=== PATIENT | female | born 1960 | race Caucasian/White ===

== ENCOUNTER 2017-06-21 11:10 | Inpatient (IN) | payer OTHER ==
[~2017-06-21] VITALS: Ht 160 cm; Wt 62.6 kg
--- NOTE | ~2017-06-21 | CATHLAB ---
[facility] [address] [place] [address] INVASIVE PROCEDURE REPORT Name: RYANDIONICIO Moore Room #: 212-P [facility]#: [id number] Admission: 06/21/17 Attend Phys: Desmond Balbuena Discharge: Date of : 62 Date of Service: 06/22/17 1121 Report #: [id number] THIS REPORT FOR: //name// APPROVED REPORT Study performed: 06/22/2017 09:07:09 Patient Details Patient Status: In-Patient Room #: The patient is a 56 year-old female Event Personnel Darryn Morris Cushion Spring Assembler, Tamara Victoria Monitor, Constance Gaines RTR, Mai Walker Wes dimensional engineer Performed Art Access - R femoral artery* Alli Access - R femoral vein [id number] Initial Mod Sed Same Phys/QHP Gr5y [id number] Mod Sed Same Phys/QHP Ea [id number] Right and Left Heart Cath w/or w/o Coronarie [id number] RLHC Hemostasis with Manual pressure Indication Arrhythmia, Dyspnea, Cardiomyopathy Procedure Narrative The patient was brought urgently to the Cardiac Catheterization Laboratory and was prepped and draped in a sterile manner. The Right Groin^ was infiltrated with 1% Lidocaine subcutaneous anesthesia. A PINNACLE 4FR Sheath #[id number] sheath was inserted into the . Coronary angiography was performed using coronary diagnostic catheters. The right coronary system was accessed and visualized with a JR 4 catheter. The left coronary system was accessed and visualized with a JL 4 catheter. The left ventricle was accessed and visualized with a PIGTAIL catheter. Left ventricular/Aortic Valve gradient assessed via catheter pullback. Left ventriculogram was performed in ALLEN projection. Hemostasis was obtained with manual pressure following sheath removal without any complications. The patient tolerated the procedure well and there were no complications associated with the procedure. There was no hematoma. Intraoperative Conscious Sedation Sedation start time: 09:25 Case end Time: 09:57 Fentanyl 50 mcg Versed 1.[address] [address] INVASIVE PROCEDURE REPORT Name: RYAN,DIONICIO S Room #: 212-P [facility]#: [id number] Admission: 06/21/17 Attend Phys: Desmond Balbuena Discharge: Date of : 62 Date of Service: 06/22/17 1121 Report #: [id number] Fluoro Time: 3.40 minutes Dose: DAP 1965.00 cGycm2 234 mGy Contrast Type and Amount: Omnipaque 95 ml Coronary Angiography The patient's coronary anatomy is right dominant. Diagnostic Cath Left Main Large-caliber vessel, anterior graphically normal. LAD Moderate size caliber vessel, traveling down the anterior wall and wrapping around the apex. Appears angiographically normal. There is a incidental finding of a fistula originating from a distal septal maintenance electrician into the left ventricle. Diagonal 1 Small-caliber vessel, with no flow-limiting lesions. Circumflex Moderate size caliber vessel, appears angiographically normal. OM1 Moderate size caliber vessel, with no flow-limiting lesions. OM2 Small-caliber vessel, with no flow-limiting lesions. Right Coronary Right dominant system, with no flow-limiting lesions. R PDA Moderate size caliber vessel, with no flow-limiting lesions. RPLV Moderate size caliber vessel, with no flow-limiting lesions. Left Ventriculography The left ventricle is mild to moderately dilated in size with decreased contractility. The left ventricular ejection fraction is estimated to be 20%. Hemodynamics The right atrial mean pressure is 10 mmHg. The right ventricular pressure is 31/1 mmHg. The pulmonary artery pressure is 30/14 mmHg with a mean of 19 mmHg. The mean pulmonary capillary wedge pressure is 12 mmHg. The aortic pressure is 115/80 mmHg with a mean of 94 mmHg. The left ventricular pressure is 118/11 mmHg with a mean of mmHg. The left ventricular end diastolic pressure is 16 mmHg. PaO2 saturation is 73.40 %. Arterial saturation is 99.00 %. The cardiac output using the Bonita method is 2.97 L/min. The cardiac index using the Bonita method is 1.82 L/min/m2. Conclusion 1. Angiographically normal coronary arteries. [address] [address] INVASIVE PROCEDURE REPORT Name: DIONICIO RYAN Room #: 212-P [facility] M.R.#: [id number] Admission: 06/21/17 Attend Phys: Desmond Balbuena Discharge: Date of : 62 Date of Service: 06/22/17 1121 Report #: [id number] 2. Severe, nonischemic cardiomyopathy. 3. Right-sided heart pressures measured. 4. Incidental finding of a coronarycameral fistula. 5. Recommend medical therapy. <ELECTRONICALLY SIGNED> By: Darryn Morris MD 06/22/171120 20 20 Darryn Morris MD /INF
--- NOTE | ~2017-06-21 | 2DMMODE ---
[facility] [place] [address] 2 D/M-MODE ECHOCARDIOGRAM Name: DIONICIO RYAN Room #: REG [facility]#: [id number] Admission: 06/21/17 Attend Phys: Desmond Balbuena Discharge: Date of : 62 Date of Service: 06/21/17 1258 Report #: [id number] THIS REPORT FOR: //name// APPROVED REPORT Study performed: 06/21/2017 11:22:52 EXAM: Comprehensive 2D, Doppler, and color-flow Echocardiogram Patient Location: Out-Patient Status: routine BSA: 1.66 HR: 63 bpm BP: 118/70 mmHg Rhythm: NSR arrhythmia Other Information Study Quality: Excellent Indications Palpitations. 2D Dimensions RVDd: 53.80 mm LVEF(%): 29.66 (>50%) IVSd: 10.24 (7-11mm) LVOT Diam: 19.99 (18-24mm) LVDd: 72.07 mm PWd: 9.18 (7-11mm) Ascending Ao: 31.76 (22-36mm) LVDs: 61.70 (25-40mm) Aortic Root: 27.91 mm Pham's LVEF: 29.66 % Volumes Left Atrial Volume (Systole) Single Plane 4CH: 52.79 mL Single Plane 2CH: 73.72 mL LA ESV Index: 42.00 mL/m2 Aortic Valve AoV Peak Rikki.: 1.12 m/s AO Peak Gr.: 5.03 mmHg LVOT Max P.00 mmHg LVOT Max V: 0.50 m/s COLEEN Vmax: 1.40 cm2 Mitral Valve E/A Ratio: 0.7 MV Decel. Time: 140.21 ms [facility] [place] [address] 2 D/M-MODE ECHOCARDIOGRAM Name: DIONICIO RYAN Room #: [facility]#: [id number] Admission: 06/21/17 Attend Phys: Desmond Balbuena Discharge: Date of : 62 Date of Service: 06/21/17 1258 Report #: [id number] MV E Max Rikki.: 0.49 m/s MV A Rikki.: 0.66 m/s MV PHT: 40.66 ms IVRT: 129.18 ms Pulmonary Valve PV Peak Rikki.: 0.86 m/s PV Peak Gr.: 2.97 mmHg Pulmonary Vein P Vein S: 0.36 m/s P Vein A: 0.21 m/s P Vein D: 0.45 m/s P Vein A Dur.: 106.1 msec P Vein S/D Ratio: 0.80 Tricuspid Valve TR Peak Rikki.: 2.31 m/s RAP Estimate: 5.00 mmHg TR Peak Gr.: 21.33 mmHg PA Pressure: 26.00 mmHg Left Ventricle Left ventricle is dilated. severe global hypokinesis with the anteroseptal wall more hypokinetic There is normal left ventricular wall thickness. Left ventricular systolic function is severely decreased. LVEF is 20-25%. Mild diastolic dysfunction is present (impaired relaxation pattern). Right Ventricle Right ventricle is dilated. Right ventricle is hypokinetic. Atria Left atrium is dilated. Right atrium is dilated. Aortic Valve The aortic valve is normal in structure. No aortic regurgitation is present. There is no aortic valvular stenosis. Mitral Valve The mitral valve is normal in structure. Mild mitral regurgitation. No evidence of mitral valve stenosis. Tricuspid Valve The tricuspid valve is normal in structure. Mild tricuspid regurgitation. Estimated PAP is 25-30mmHg. Pulmonic Valve The pulmonary valve is normal in structure. Mild pulmonic [facility] [address] [place] [address] 2 D/M-MODE ECHOCARDIOGRAM Name: DIONICIO RYAN Room #: REG [facility]#: [id number] Admission: 06/21/17 Attend Phys: Desmond Balbuena Discharge: Date of : 62 Date of Service: 06/21/17 1258 Report #: [id number] regurgitation. Great Vessels The aortic root is normal in size. The ascending aorta is normal in size. IVC is normal in size and collapses >50% with inspiration. Pericardium There is no pericardial effusion. <Conclusion> severe global hypokinesis with the anteroseptal wall more hypokinetic LVEF is 20-25%. Right ventricle is dilated. Left atrium is dilated. Right atrium is dilated. The aortic valve is normal in structure. The mitral valve is normal in structure. Mild mitral regurgitation. The tricuspid valve is normal in structure. Mild tricuspid regurgitation. Estimated PAP is 25-30mmHg. The pulmonary valve is normal in structure. Mild pulmonic regurgitation. There is no pericardial effusion. <ELECTRONICALLY SIGNED> By: Chris Barclay MD 06/21/17 1258 1258 1258 Chris Barclay MD /INF
--- NOTE | ~2017-06-21 | D ---
[facility] [place] [address] DISCHARGE SUMMARY Name: DIONICIO RYAN Room #: 212-P [facility] IN ..#: [id number] Admission: 06/21/17 Attend Phys: Desmond Balbuena MD Discharge: 06/23/17 Date of : 62 Report #: [id number] THIS REPORT FOR: //name// CC: Desmnod Balbuena [facility] DATE OF SERVICE: 06/23/2017 DISCHARGE DIAGNOSES: 1. Nonischemic cardiomyopathy. 2. Nonsustained ventricular tachycardia. 3. Acute systolic heart failure. 4. Hypertension. HISTORY: The patient is a 56-year-old who was sent to me as an outpatient for irregular heartbeat noted on physical exam. To further evaluate this, I had the patient wear a media monitor and when she came in for followup after wearing the monitor, I had her undergo an echocardiogram that morning. She was noted to have a severely decreased EF of 20-25% with biventricular enlargement. Her media monitor also revealed that she had frequent episodes of nonsustained VT with rates close to 200 beats a minute and the longest lasting 19 beats at around 10 seconds. Speaking with her, she has had some shortness of breath and her believes that she underestimates this as he believes she is always fatigued and has exertional dyspnea with mild activities and easily gets short of breath when she climbs stairs. As such, I have recommended emergent admission given her potentially life-threatening cardiac arrhythmias and severe cardiomyopathy. HOSPITAL COURSE: The patient was placed in the hospital and obtained baseline laboratories. Her thyroid function was within normal limits. Her ferritin level was normal as well. She had essentially normal chemistry and CBC. She did have an elevated proBNP and a slightly elevated troponin, likely due to her cardiomyopathy. The following day, she underwent diagnostic cardiac catheterization, which showed angiographically normal coronary arteries. Her left ventricular end-diastolic pressure was 16. Her PaO2 saturation was 73.4%, arterial sat was 99%. Her cardiac output using the Bonita method was 2.97 liters per minute and her cardiac index was 1.8 liters per minute per meter squared. There was also an incidental finding of a coronary cameral fistula. As such, the patient was monitored overnight and continued to optimize her medications. I stopped diuretics as it appears that she had diuresed well. On the day of discharge, she was doing better. She denied any chest pain, shortness of breath was improved. She had no PND, orthopnea. On physical exam, her heart was regular rate and rhythm. Lungs clear to auscultation bilaterally. She had no lower extremity edema. She had been approved for her LifeVest and I instructed the importance of wearing this daily. [address] [address] DISCHARGE SUMMARY Name: DIONICIO RYAN Room #: 212-P [facility] IN M.R.#: [id number] Admission: 06/21/17 Attend Phys: Desmond Balbuena MD Discharge: 06/23/17 Date of : 62 Report #: [id number] DISCHARGE MEDICATIONS: Include carvedilol 3.125 b.i.d., losartan 25 mg once a day, aspirin 81 mg once a day, amiodarone 400 mg once a day. We discussed that we will have to monitor liver, thyroid function test, which she understands. We will see her back in clinic in approximately 2 weeks. I discussed that eventually I would like her to undergo cardiac MRI to evaluate the etiology of her cardiomyopathy. We could also consider genetic testing for her cardiomyopathy as well. Thank you for allowing me to participate in her care. By: 1050 1133 Desmond Balbuena MD /nt
--- NOTE | ~2017-06-21 | EKG ---
[place] [address] [address] [facility] [email or web address] [address] ELECTROCARDIOGRAM REPORT Name: RYAN,DIONICIO Teresa Room #: 212-P ADM IN M.R.#: [id number] Admission: 06/21/17 Attend Phys: Desmond Balbuena MD Discharge: Date of : 62 Report #: [id number] THIS REPORT FOR: //name// [facility] Test Date: 2017-06-21 Test Time: 19:17:39 Pat Name: DIONICIO RYAN Department: Room: 212 P Gender: F Aircraft Captain: Huseyin PARDO : 1960 Requested By: Desmond Balbuena Order Number: [id number] MD: Danie Israel Measurements Intervals [place] Rate: 73 P: 54 MT: 199 QRS: -73 QRSD: 182 T: 100 QT: 439 QTc: 484 Interpretive Statements Sinus rhythm Multiform ventricular premature complexes Probable left atrial enlargement Right bundle branch block LVH with secondary repol abnrm No previous ECG available for comparison Electronically Signed On 06-22-2017 7:32:57 CDT by Danie Israel [email or web address] <ELECTRONICALLY SIGNED> By: Danie Israel MD, [facility] 06/22/17 0732 191 16 Danie Israel MD, [facility] /EPI
--- NOTE | ~2017-06-21 | H ---
[facility] [place] [address] HISTORY AND PHYSICAL Name: DIONICIO RYAN Room #: 212-P ADM IN M.R.#: [id number] Admission: 06/21/17 Attend Phys: Desmond Balbuena MD Discharge: Date of : 62 Report #: [id number] THIS REPORT FOR: //name// CC: Desmond Whittington REASON FOR ADMISSION: 1. Acute congestive heart failure. 2. Nonsustained VT. 3. Newly diagnosed cardiomyopathy. HISTORY: The patient is a 56-year-old who I recently saw in consultation as an outpatient for some palpitations. Apparently, she was at her LEASING ASSISTANT who noted some skipped heartbeats. The LEASING ASSISTANT discussed with Dr. Whittington these findings and Dr. Whittington recommended that the patient see me. The patient reports that occasionally she notices some skipped heartbeats, but denied any other cardiovascular complaints. She denied any problems with chest pain or chest tightness. At that time, I recommended that she wear a manager cardiac and follow up in about a month and at that time, we would perform an echocardiogram. Today, she came in for evaluation and she underwent an echocardiogram, which I reviewed, which surprisingly demonstrates her EF to be 20-25% with enlargement of the left ventricle and right ventricle. I reviewed her manager cardiac, which did show several runs of nonsustained VT, the longest of which was 19 beats lasting 8.4 seconds with average heart rate of 153 beats per minute. There were approximately 20 episodes of nonsustained VT noted. Her EKG shows normal sinus rhythm with a right bundle branch block morphology, QRS duration 184 milliseconds, possible epsilon waves noted in V3, V4, but again this may be related to the usual right bundle branch block morphology. There are no ischemic changes. REVIEW OF SYSTEMS: GENERAL: She denies fevers or chills. HEENT: No sore throat. CARDIOVASCULAR: As above. PULMONARY: No productive cough. She reports that she does have exertional dyspnea, which her agrees with. He thinks that she is always short of breath and thinks it is unusual how tired she always is. She thinks that she minimizes her shortness of breath and she notices that when she climbs a flight of stairs, she is very short of breath. GASTROINTESTINAL: No nausea or vomiting. GENITOURINARY: No dysuria. MUSCULOSKELETAL: No myalgias or arthralgias. ENDOCRINE: No heat or cold intolerance. NEUROLOGIC: No focal weakness. HOME MEDICATIONS: Include citalopram, fluticasone, hydrochlorothiazide and norgestrel with ethinyl estradiol. [address] [address] HISTORY AND PHYSICAL Name: DIONICIO RYAN Room #: 212-P [facility] IN M.R.#: [id number] Admission: 06/21/17 Attend Phys: Desmond Balbuena MD Discharge: Date of : 62 Report #: [id number] ALLERGIES: She has no known drug allergies. PAST MEDICAL HISTORY: Hypertension, hyperlipidemia, squamous cell carcinoma, cough due to AVA inhibitor, arrhythmias and anxiety. FAMILY HISTORY: Includes a father who had aneurysm, but no history of cardiomyopathy or sudden cardiac . SOCIAL HISTORY: The patient smoked briefly in the 80s and rarely drinks alcohol. She does use a lot of caffeine. She is and here with her and has a child who is in college. PHYSICAL EXAMINATION: VITAL SIGNS: Today, pulse 69, blood pressure systolic was 110/60. GENERAL: She is in no acute distress. HEENT: Oropharynx is clear. NECK: Supple, with no thyromegaly. HEART: Regular rate and rhythm. She does have positive JVD. LUNGS: Clear to auscultation bilaterally. ABDOMEN: Soft, nontender, nondistended. EXTREMITIES: No clubbing, cyanosis, edema. NEUROLOGIC: Cranial nerves 2-12 are grossly intact. Chest x-ray is pending. LABORATORY DATA: White count is 8.8, hemoglobin 15, platelets are 255. Coags: INR is 1.0. Her sodium is 143, potassium 3.7, BUN 18, creatinine 1.0, glucose 103, ferritin is 41. Her total bilirubin is 1.4, ALT 16, alkaline phosphatase 72. Troponin is 0.11. Her proBNP is 2687. Her TSH is 0.7, her free T4 is 0.9. Her EKG is as described above. ASSESSMENT: 1. Acute new onset congestive heart failure. 2. Left ventricular systolic failure. 3. Right ventricular systolic failure. 4. Elevated troponin, likely due to congestive heart failure. 5. History of hypertension. 6. History of hyperlipidemia. 7. Nonsustained ventricular tachycardia. 8. High risk for sudden cardiac given cardiomyopathy and ventricular tachycardia. In summary, the patient is a 56-year-old with newly diagnosed cardiomyopathy. It is unclear if this is ischemic or nonischemic in nature. What is most concerning is the ventricular arrhythmias noted on her manager cardiac. I have [facility] [address] [place] [address] HISTORY AND PHYSICAL Name: DIONICIO RYAN Room #: 212-P ADM IN [facility].#: [id number] Admission: 06/21/17 Attend Phys: Desmond Balbuena MD Discharge: Date of : 62 Report #: [id number] recommended emergent admission to evaluate the etiology of her cardiomyopathy. I also want to ensure that she is safe from any ventricular arrhythmias and monitored in the hospital. We will take this admission to initiate standard cardiovascular medications including beta asael and ARB. Apparently, she has had intolerances to lisinopril in the past with a cough, which she was on for hypertension. I have recommended that she undergo diagnostic right and left heart catheterization tomorrow to rule out any significant coronary artery disease. It would seem unlikely that she would have significant risk factors for coronary artery disease given her age. If this is normal, we will continue to optimize her meds in the hospital and diurese the patient while she is here. Also, prior to discharge, she will need to have a LifeVest placed to be protected from any future ventricular arrhythmias. By: 1658 [id number] Desmond Balbuena MD /nt
[2017-06-21] MEDS ORDERED: HYDROCHLOROTH12.5 M1 PO (15:01)
[2017-06-21] MEDS ORDERED: CELEXA20 MG PO (15:01)
[2017-06-21] MEDS ORDERED: FLONASE 0.05%50 MCG NASAL (15:02)
[2017-06-21] MEDS ORDERED: ESTRADIOL 1 MG T1 M1 PO (15:03)
[2017-06-21] MEDS ORDERED: FEMHRT 0.5 MG-1 EACH PO (15:03)
[2017-06-21] MEDS ORDERED: AYGESTIN 5 MG TA5 M1 PO ×2 (15:06→15:07)
[2017-06-21] MEDS ORDERED: GYNODIOL0.5 MG PO (15:08)
[2017-06-21 15:22] LABS: HEMATOCRIT 44.8 % (37.0-47.0); MCH 30.2 pg (26.0-34.0); MCHC 33.4 g/dL (28.0-37.0); MCV 90.4 fL (80.0-100.0); RBC 4.96 mil/uL (4.20-5.00); RDW 13.6 % (10.5-14.5); WBC 8.8 thou/uL (4.0-11.0)
[2017-06-21 15:38] LABS: PROTIME 10.3 Seconds (9.3-11.4)
[2017-06-21 15:43] LABS: ALBUMIN 4.3 g/dL (3.4-5.0); CALCIUM 9.7 mg/dL (8.5-10.1); POTASSIUM 3.7 mmol/L (3.5-5.1); TOTAL BILIRUBIN 1.4 mg/dL (<0.1-1.0); TOTAL PROTEIN 7.5 g/dL (6.4-8.2); TROPONIN-I 0.11 ng/mL (<0.06)
[2017-06-21 15:51] LABS: TSH 0.71 uIU/mL (0.358-3.740)
[2017-06-21 19:50] VITALS: BP 122/67
[2017-06-22 00:29] VITALS: BP 100/58
[2017-06-22 04:18] VITALS: BP 99/73
[2017-06-22 07:40] VITALS: BP 106/52
[2017-06-22 09:37] LABS: BE(vivo) -0.5 mmol/L (-2 to +3); HCO3 25.3 mmol/L (22.0-26.0); PCO2 45.2 mmHg (35.0-45.0); pH 7.365 (7.360-7.450); sO2 73.4 % (92.0-98.0)
[2017-06-22 09:38] LABS: PO2 40.3 mmHg (80.0-100.0)
[2017-06-22 09:44] LABS: BE(vivo) -0.7 mmol/L (-2 to +3); HCO3 24.5 mmol/L (22.0-26.0); PCO2 42.1 mmHg (35.0-45.0); PO2 205.4 mmHg (80.0-100.0); pH 7.382 (7.360-7.450); sO2 99.4 % (92.0-98.0)
[2017-06-22 15:50] VITALS: BP 94/54
[2017-06-23 00:01] VITALS: BP 95/59
[2017-06-23 03:41] VITALS: BP 100/62
[2017-06-23 04:28] LABS: ABSOLUTE NEUTROPHILS 3.7 thou/uL (1.4-8.2); BASOPHILS 0.7 % (0.0-2.0); EOSINOPHILS 2.1 % (0.0-3.0); HEMATOCRIT 40.4 % (37.0-47.0); HEMOGLOBIN 13.5 gm/dL (12.0-15.0); MCH 30.3 pg (26.0-34.0); MCHC 33.3 g/dL (28.0-37.0); MONOCYTES 7.1 % (1.0-8.0); PLATELET COUNT 228 thou/uL (150-400); POLYS 55.1 % (36.0-66.0); RBC 4.44 mil/uL (4.20-5.00); RDW 13.4 % (10.5-14.5); WBC 6.6 thou/uL (4.0-11.0)
[2017-06-23 04:42] LABS: CALCIUM 9.2 mg/dL (8.5-10.1); CREATININE 0.8 mg/dL (0.6-1.0); POTASSIUM 3.9 mmol/L (3.5-5.1)
[2017-06-23 07:15] VITALS: BP 96/56
[2017-06-23] MEDS ORDERED: CARVEDILOL3.125 MG PO (09:06)
[2017-06-23] MEDS ORDERED: PACERONE 200 M200 M1 PO (09:06)
[2017-06-23] MEDS ORDERED: COZAAR 25 MG TA25 M1 PO (09:06)
[2017-06-23] MEDS ORDERED: ASPIR 8181 MG PO (09:07)
[2017-06-23 09:46] VITALS: BP 96/56
== END 2017-06-23 10:36 | disposition home or self-care (01) | DRG 287 ==
LOC: CV → 2N 14:21 → CV 14:29 → 2N 06-23 10:36
PROVIDERS: Internal Medicine Cardiovascular Disease; Nurse Practitioner Gerontology
PROC: B2151ZZ Fluoroscopy of Left Heart using Low Osmolar Contrast (ICD-10-PCS; principal; 2017-06-22)
PROC: B2111ZZ Fluoroscopy of Multiple Coronary Arteries using Low Osmolar Contrast (ICD-10-PCS; principal; 2017-06-22)
PROC: 4A023N7 Measurement of Cardiac Sampling and Pressure, Left Heart, Percutaneous Approach (ICD-10-PCS; principal; 2017-06-22)
DX: I11.0 Hypertensive heart disease with heart failure (principal); I47.2 Ventricular tachycardia; I50.21 Acute systolic (congestive) heart failure; E78.5 Hyperlipidemia, unspecified
CPT/HCPCS: 10797

== ENCOUNTER 2017-07-11 10:02 | Inpatient (IN) | payer OTHER ==
[~2017-07-11] VITALS: Ht 143.3 cm; Wt 55.3 kg
--- NOTE | ~2017-07-11 | P ---
[facility] [address] [address] PROCEDURE REPORT Name: CONNORDIONICIO Moore Room #: 205-P [facility] IN ..#: [id number] Admission: 07/11/17 Attend Phys: Adrianna Henriquez Discharge: 07/12/17 Date of : 62 Report #: [id number] THIS REPORT FOR: //name// CC: Adrianna Islas [facility] DATE OF SERVICE: 07/11/2017 PROCEDURE PERFORMED: Biventricular ICD implantation. HISTORY OF PRESENT ILLNESS: The patient is a 56-year-old recently diagnosed with a nonischemic cardiomyopathy and nonsustained VT. She was recently admitted, underwent diagnostic cardiac catheterization and started on standard heart failure medication regimen. She was also started on amiodarone for her malignant ventricular arrhythmias. She had a LifeVest placed. On the day of the procedure, she called in complaining of a syncopal episode. We interrogated her LifeVest remotely and there was evidence of complete heart block. We asked her to come to the emergency room and she was noted to be in complete heart block in the ER. As such, she was taken emergently today for device implantation. Given that she has complete heart block and a decreased EF and I anticipate 100% RV pacing, I recommend biventricular pacing with a RV and LV lead. Given that she has a severely decreased EF and unlikely to recover much cardiac function, I recommended placing a biventricular ICD today to prevent a repeat surgical procedure in the near future. ANESTHESIA: The patient underwent MAC anesthesia with no anesthesia related complications. PROCEDURE: The patient underwent informed consent where we discussed the details of the procedure including the risks, which include, but not limited to bleeding, infection, vascular damage, cardiac perforation and pneumothorax. She understood these risks and is willing to proceed. As such, she was brought to the EP laboratory in a fasting and sedated state and prepped and draped in a sterile fashion. Next, a venogram was performed and IV antibiotics were administered. I injected lidocaine below the level of left clavicle. Incision was made. A pocket was created over the prepectoral fascia and access was obtained 3 times in the left axillary vein using the extrathoracic approach with sheath positioned using the modified Seldinger technique. Next, I positioned a dual coil RV lead into the right ventricular apex with adequate pacing and sensing thresholds and an atrial lead was positioned in the right atrial appendage with adequate pacing and sensing thresholds. Both leads were sutured to the prepectoral fascia. Next, a guide sheath was placed into the right atrium and access was easily obtained to the coronary sinus. There was evidence of a nice posterolateral branch and I was able to position a quadripolar lead deep into this vessel. There was good pacing and sensing thresholds on this lead. The sheath was split and the lead remained stable. The LV lead was [facility] [address] [place] [address] PROCEDURE REPORT Name: DIONICIO RYAN Room #: 205-P [facility] IN M.R.#: [id number] Admission: 07/11/17 Attend Phys: Adrianna Henriquez Discharge: 07/12/17 Date of : 62 Report #: [id number] sutured to the prepectoral fascia. The leads were connected to the ICD and the pocket was irrigated with vancomycin solution. The pocket was closed in 3 layers using 2-0 for the deep layer, 3-0 for the mid layer, and 4-0 for the subcuticular layer. Surgical glue was placed to the outer skin layer. The patient awoke neurologically and hemodynamically intact. No complications and no significant bleeding. While implanting the device, she had regained conduction, but towards the end, she was demonstrating that she required 100% ventricular pacing. The implanted device was a [employer] model #[id number], serial #[id number]. The atrial lead was [employer] model #2088TC, 52 cm, serial #[id number] with a P-wave of 1.8 millivolts, pacing impedance of 490 ohms and a pacing threshold of 0.75 volts at 0.5 milliseconds. The RV lead was a [employer] model #7120Q, 65 cm, serial #[id number]. This lead demonstrated a R-wave of 11.8 millivolts, a pacing impedance of 650 ohms and a pacing threshold of 0.5 volts at 0.5 milliseconds. The LV lead was a [employer] model #1458QL, 86 cm, serial #[id number]. This lead demonstrated a pacing impedance of 710 ohms and a pacing threshold of 1.75 volts at 0.5 milliseconds. The device was programmed to the DDD 60-130 mode. The VT zone was set from 180-220 beats per minute with ATP while charging followed by max output shocks. The VF zone was set at greater than 220 beats per minute with ATP while charging followed by max output shocks. CONCLUSIONS: 1. Successful biventricular ICD implantation. 2. Satisfactory atrial, right ventricular and left ventricular pacing and sensing thresholds. <ELECTRONICALLY SIGNED> By: Desmond Balbuena MD 08/10/17 0827 1052 1740 Desmond Balbuena MD /nt
--- NOTE | ~2017-07-11 | EKG ---
[place] [address] [facility] [place] [address] ELECTROCARDIOGRAM REPORT Name: RYAN,DIONICIO Teresa Room #: 205-P ADM IN M.R.#: [id number] Admission: 07/11/17 Attend Phys: Adrianna Henriquez Discharge: Date of : 62 Report #: [id number] THIS REPORT FOR: //name// [facility] ED Test Date: 2017-07-11 Test Time: 10:05:40 Pat Name: DIONICIO RYAN Department: Room: 205 Gender: F [employer]: JANELL : 1960 Requested By: Vaishali Billy Order Number: [id number] MD: Danie Israel Measurements Intervals [place] Rate: 30 P: 0 LA: QRS: -71 QRSD: 174 T: -78 QT: 632 QTc: 447 Interpretive Statements Sinus rhythm with Complete heart block Right bundle branch block Inferior myocardial infarction of indeterminate age T-wave abnormality, consider ischemia Compared to ECG 06/21/2017 19:17:39 AV block, complete (third-degree) now present Electronically Signed On 07-11-2017 16:41:12 CDT by Danie Israel [email or web address] <ELECTRONICALLY SIGNED> By: Danie Israel MD, [facility] 07/11/17 1641 1005 1005 Danie Israel MD, [facility] /EPI
[~2017-07-11 10:02] MED LIST: ASPIR 8181 MG PO; AYGESTIN 5 MG TA5 M1 PO; CARVEDILOL3.125 MG PO; CELEXA20 MG PO; COZAAR 25 MG TA25 M1 PO; ESTRADIOL 1 MG T1 M1 PO; FEMHRT 0.5 MG-1 EACH PO; FLONASE 0.05%50 MCG NASAL; GYNODIOL0.5 MG PO; HYDROCHLOROTH12.5 M1 PO; PACERONE 200 M200 M1 PO
[2017-07-11 10:06] VITALS: BP 110/33
[2017-07-11 10:35] LABS: ABSOLUTE NEUTROPHILS 4.9 thou/uL (1.4-8.2); BASOPHILS 1.1 % (0.0-2.0); EOSINOPHILS 2.1 % (0.0-3.0); LYMPHOCYTES 20.6 % (24.0-44.0); MCHC 34.1 g/dL (28.0-37.0); MCV 90.9 fL (80.0-100.0); MONOCYTES 5.4 % (1.0-8.0); PLATELET COUNT 285 thou/uL (150-400); POLYS 70.8 % (36.0-66.0); RBC 4.84 mil/uL (4.20-5.00); RDW 13.5 % (10.5-14.5); WBC 6.9 thou/uL (4.0-11.0)
[2017-07-11 10:38] LABS: CALCIUM 9.4 mg/dL (8.5-10.1); CREATININE 1.3 mg/dL (0.6-1.0); POTASSIUM 4.2 mmol/L (3.5-5.1)
[2017-07-11 10:39] LABS: MAGNESIUM 2.1 mg/dL (1.8-2.4)
[2017-07-11 10:48] LABS: APTT 24.6 Seconds (24.5-32.8); PROTIME 10.3 Seconds (9.3-11.4)
[2017-07-11 11:23] VITALS: BP 105/45
[2017-07-11 11:49] LABS: CHOLESTEROL 199 mg/dL (<200); HDL CHOLESTEROL 51 mg/dL (>40); LDL CHOLESTEROL 137 mg/dL (<100); TC:HDL 3.9 Ratio (Not establshd); TRIGLYCERIDE 59 mg/dL (<150); VLDL 12 mg/dL (<40)
[2017-07-11 17:26] VITALS: BP 120/75
[2017-07-11 20:33] VITALS: BP 106/57
[2017-07-11 22:53] VITALS: BP 105/62
[2017-07-12 02:06] LABS: LYME ANTIBODY SCREEN* <0.91 ISR (0.00-0.90)
[2017-07-12 05:09] VITALS: BP 98/49
[2017-07-12] MEDS ORDERED: HYDROCODON-ACE1 EAC7 PO (08:03)
[2017-07-12 11:16] VITALS: BP 98/49
== END 2017-07-12 11:54 | disposition home or self-care (01) | DRG 227 ==
LOC: ER 10:02 → 2N 11:16 → EROBS 11:16 → 2N 11:35 → ICU 13:22 → 2N 14:02 → ENTRNSPT 07-12 11:37 → EDTRNSPTSTS 07-12 11:44 → 2N 07-12 11:54
PROVIDERS: Emergency Medicine; Hospitalist
PROC: 02H63KZ Insertion of Defibrillator Lead into Right Atrium, Percutaneous Approach (ICD-10-PCS; principal; 2017-07-11)
PROC: 02HK3KZ Insertion of Defibrillator Lead into Right Ventricle, Percutaneous Approach (ICD-10-PCS; principal; 2017-07-11)
PROC: 02HL3KZ Insertion of Defibrillator Lead into Left Ventricle, Percutaneous Approach (ICD-10-PCS; principal; 2017-07-11)
PROC: 0JH609Z Insertion of Cardiac Resynchronization Defibrillator Pulse Generator into Chest Subcutaneous Tissue and Fascia, Open Approach (ICD-10-PCS; principal; 2017-07-11)
DX: I44.2 Atrioventricular block, complete (principal); I42.0 Dilated cardiomyopathy; I10 Essential (primary) hypertension; Z79.899 Other long term (current) drug therapy; Z79.82 Long term (current) use of aspirin; Z87.891 Personal history of nicotine dependence

== ENCOUNTER → 2017-10-12 | Outpatient (CLI) | payer OTHER ==
[~2017-10-12] MED LIST changes: +HYDROCODON-ACE1 EAC7 PO
--- NOTE | ~2017-10-12 | 2DMMODE ---
[facility] [address] [place] [address] 2 D/M-MODE ECHOCARDIOGRAM Name: DIONICIO RYAN Room #: [facility]#: [id number] Admission: 10/12/17 Attend Phys: Desmond Balbuena Discharge: Date of : 62 Date of Service: 10/12/17 1446 Report #: [id number] THIS REPORT FOR: //name// APPROVED REPORT Study performed: 10/12/2017 13:11:05 EXAM: Comprehensive 2D, Doppler, and color-flow Echocardiogram Patient Location: Out-Patient Room #: Echo lab 2 Status: routine BSA: 1.66 HR: 61 bpm BP: 114/76 mmHg Other Information Study Quality: Good Indications ICD: Hypertension/HDD 2D Dimensions RVDd: 44.32 mm LVEF(%): 25.20 (>50%) IVSd: 9.05 (7-11mm) LVOT Diam: 20.07 (18-24mm) LVDd: 71.06 mm PWd: 10.22 (7-11mm) LVDs: 62.51 (25-40mm) Aortic Root: 24.99 mm IVC: 15.00 mm Pham's LVEF: 25.20 % Volumes Left Atrial Volume (Systole) Single Plane 4CH: 97.67 mL Single Plane 2CH: 72.95 mL LA ESV Index: 54.00 mL/m2 Aortic Valve AoV Peak Rikki.: 1.21 m/s AO Peak Gr.: 5.81 mmHg LVOT Max P.23 mmHg LVOT Max V: 0.55 m/s COLEEN Vmax: 1.45 cm2 Mitral Valve E/A Ratio: 1.4 MV Decel. Time: 194.07 ms [facility] [address] [place] [address] 2 D/M-MODE ECHOCARDIOGRAM Name: DIONICIO RYAN Room #: [facility]#: [id number] Admission: 10/12/17 Attend Phys: Desmond Balbuena Discharge: Date of : 62 Date of Service: 10/12/17 1446 Report #: [id number] E Max Rikki.: 0.70 m/s MV A Rikki.: 0.49 m/s MV PHT: 56.28 ms IVRT: 83.04 ms Pulmonary Valve PV Peak Rikki.: 0.69 m/s PV Peak Gr.: 1.92 mmHg Pulmonary Vein P Vein S: 0.54 m/s P Vein A: 0.32 m/s P Vein D: 0.40 m/s P Vein S/D Ratio: 1.35 Tricuspid Valve TR Peak Rikki.: 2.30 m/s TR Peak Gr.: 21.24 mmHg PA Pressure: 26.00 mmHg Left Ventricle Left ventricle is dilated. There is severe global hypokinesis of the left ventricle. There is normal left ventricular wall thickness. Left ventricular ejection fraction is severely decreased. LVEF is 20-25%. Grade III - reversible restrictive diastolic dysfunction. Right Ventricle Right ventricle is dilated. Right ventricle is mildly hypokinetic. Device lead is present in the right ventricle. Atria Left atrium is dilated. Right atrium is dilated. Device lead is present in the right atrium. Aortic Valve The aortic valve is normal in structure. No aortic regurgitation is present. There is no aortic valvular stenosis. Mitral Valve The mitral valve is normal in structure. Mild to moderate mitral regurgitation. No evidence of mitral valve stenosis. Tricuspid Valve The tricuspid valve is normal in structure. There is mild tricuspid regurgitation. Estimated PAP 26 mmHg. There is no pulmonary hypertension. Pulmonic Valve [address] [address] 2 D/M-MODE ECHOCARDIOGRAM Name: DIONICIO RYAN Room #: [facility] [place]#: [id number] Admission: 10/12/17 Attend Phys: [facility]mond [facility] Discharge: Date of : 62 Date of Service: 10/12/17 1446 Report #: [id number] The pulmonary valve is normal in structure. Trace to mild pulmonic regurgitation. Great Vessels The aortic root is normal in size. IVC is normal in size and collapses >50% with inspiration. Pericardium There is no pericardial effusion. <Conclusion> Left ventricle is dilated. Left ventricular ejection fraction is severely decreased. Right ventricle is dilated. Left atrium is dilated. Device lead is present in the right ventricle. Right atrium is dilated. Device lead is present in the right atrium. There is no aortic valvular stenosis. Mild to moderate mitral regurgitation. There is mild tricuspid regurgitation. Estimated PAP 26 mmHg. <ELECTRONICALLY SIGNED> By: Darryn Morris MD 10/12/17 1446 1446 1446 Darryn Morris MD /INF
== END ==
LOC: CV 12:51
DX: I08.1 Rheumatic disorders of both mitral and tricuspid valves (principal); I10 Essential (primary) hypertension; I42.8 Other cardiomyopathies

== ENCOUNTER → 2018-01-31 | Outpatient (CLI) | payer OTHER ==
--- NOTE | ~2018-01-31 | 2DMMODE ---
[facility] [address] [place] [address] 2 D/M-MODE ECHOCARDIOGRAM Name: CONNORDIONICIO SUE Room #: [facility]#: [id number] Admission: 01/31/18 Attend Phys: Desmond Balbuena Discharge: Date of : 62 Date of Service: 01/31/18 1544 Report #: [id number] THIS REPORT FOR: //name// APPROVED REPORT Study performed: 01/31/2018 14:07:34 EXAM: Comprehensive 2D, Doppler, and color-flow Echocardiogram Patient Location: Out-Patient Room #: ECHO 1 Status: routine BSA: 1.62 HR: 60 bpm BP: 118/62 mmHg Rhythm: Pacemaker Other Information Study Quality: Good Risk Factors: Cardiac Risk Factors: HTN Indications ICD: Cardiomyopathy Hypertension/HDD 2D Dimensions RVDd: 40.97 mm IVSd: 9.96 (7-11mm) LVOT Diam: 22.66 (18-24mm) LVDd: 69.35 mm PWd: 10.42 (7-11mm) Ascending Ao: 30.23 (22-36mm) LVDs: 66.29 (25-40mm) Aortic Root: 25.29 mm IVC: 13.00 mm Volumes Left Atrial Volume (Systole) Single Plane 4CH: 62.27 mL Single Plane 2CH: 74.81 mL LA ESV Index: 46.00 mL/m2 Aortic Valve AoV Peak Rikki.: 1.17 m/s AO Peak Gr.: 5.50 mmHg LVOT Max P.61 mmHg LVOT Max V: 0.81 m/s COLEEN Vmax: 2.78 cm2 [facility] [address] [address] 2 D/M-MODE ECHOCARDIOGRAM Name: RYAN,DIONICIO DYE Room #: [facility]#: [id number] Admission: 01/31/18 Attend Phys: Desmond Balbuena Discharge: Date of : 62 Date of Service: 01/31/18 1544 Report #: [id number] Mitral Valve E/A Ratio: 0.6 MV Decel. Time: 314.42 ms MV E Max Rikki.: 0.46 m/s MV A Rikki.: 0.73 m/s MV PHT: 91.18 ms IVRT: 170.70 ms Pulmonary Valve PV Peak Rikki.: 0.89 m/s PV Peak Gr.: 3.16 mmHg Pulmonary Vein P Vein S: 0.48 m/s P Vein A: 0.17 m/s P Vein D: 0.36 m/s P Vein A Dur.: 133.8 msec P Vein S/D Ratio: 1.33 Tricuspid Valve TR Peak Rikki.: 2.37 m/s TR Peak Gr.: 22.39 mmHg PA Pressure: 27.00 mmHg Left Ventricle Left ventricle is dilated. There is normal left ventricular wall thickness. Left ventricular systolic function is severely decreased. LVEF is 20%. Grade III - reversible restrictive diastolic dysfunction. Right Ventricle Right ventricle is dilated. Right ventricle is hypokinetic. Atria Left atrium is dilated. Right atrium is dilated. Aortic Valve The aortic valve is normal in structure. No aortic regurgitation is present. There is no aortic valvular stenosis. Mitral Valve The mitral valve is normal in structure. Moderate mitral regurgitation. No evidence of mitral valve stenosis. Tricuspid Valve The tricuspid valve is normal in structure. Mild tricuspid regurgitation. [facility] [address] [place] [address] 2 D/M-MODE ECHOCARDIOGRAM Name: DIONICIO RYAN MARNIE Room #: [facility]#: [id number] Admission: 01/31/18 Attend Phys: Desmond Balbuena Discharge: Date of : 62 Date of Service: 01/31/18 1544 Report #: [id number] Pulmonic Valve The pulmonary valve is normal in structure. Trace to mild pulmonic regurgitation. Great Vessels The aortic root is normal in size. IVC is normal in size and collapses >50% with inspiration. Pericardium There is no pericardial effusion. No pleural effusion. <Conclusion> Left ventricle is dilated. LVEF is 20%. Right ventricle is dilated. Right ventricle is hypokinetic. Left atrium is dilated. Right atrium is dilated. The aortic valve is normal in structure. The mitral valve is normal in structure. Moderate mitral regurgitation. The tricuspid valve is normal in structure. Mild tricuspid regurgitation. The pulmonary valve is normal in structure. Trace to mild pulmonic regurgitation. There is no pericardial effusion. No pleural effusion. <ELECTRONICALLY SIGNED> By: Chris Barclay MD 01/31/18 1544 1544 1544 Chris Barclay MD /INF
== END ==
LOC: CV 07:20
DX: I08.1 Rheumatic disorders of both mitral and tricuspid valves (principal); I42.8 Other cardiomyopathies; I10 Essential (primary) hypertension